=== PATIENT | male | born 1970 | race Caucasian/White ===

== ENCOUNTER 2024-12-29 10:19 | Outpatient (REF) | payer MEDICAID, SELFPAY ==
--- OUTSIDE RECORDS SUMMARY | 2024-08-06 07:00 | XMS_ITS ---
Author Organization [facility] Address [address] [place] [address] Care Team Providers Care Banking Pin Adjuster Name Role Phone NO, PCP Primary Care Provider Faby Zuniga Unavailable Social History Sex Assigned At : Social History Observation Description Sex Assigned At Male Encounters Encounter Location Date Provider Diagnosis [facility] [address] [place] [phone] 08/06/2024 Faby Zuniga Plan Of Treatment No Information Progress Notes * ALEJANDREZulema MORALESOB:[birth year] (54 yo M)Acc No.[id number]:08/06/2024 Case Management Patient: Henri JACOBSENsus Provider: Jim Zuniga :1970 A ge:53 Y S ex:Male Date:08/06/2024 Address:[address] [place], [place] [phone] Pcp:PCP NO Subjective: * Chief Complaints: * * Medical History: Objective: Assessment: Plan: * Treatment: * Images: Billing Information: * Visit Code: * Procedure Codes: Care Plan Details* * Electronic signature of Adelfo Zuniga on 12/29/2024 at 12:12 PM EDT Sign off status: Pending * Provider: Jim Zuniga Date: 0 08/06/2024 Generated for Claytoni ng/Faleobardog/eTransmitting on: 1 12:12 PM EDT
--- OUTSIDE RECORDS SUMMARY | 2024-09-04 09:30 | XMS_ITS ---
Author Organization [facility] Address [address] [place] [phone] Care Team Providers Care Guest Room Inspector Name Role Phone NO, PCP Primary Care Provider [phone] Faby Zuniga Unavailable [facility], Nursing Unavailable [phone] REASON FOR VISIT Phone: Intake Social History Sex Assigned At : Social History Observation Description Sex Assigned At Male Encounters Encounter Location Date Provider Diagnosis [id number] [place] [address] 09/04/2024 Nursing [facility] Assessments Encounter Date Diagnosis (ICD Code) Assessment Notes Treatment Notes Treatment Clinical Notes Section Notes 09/04/2024 Other 09/01: No [facility] records Plan Of Treatment Treatment Notes Assessment Notes Other 09/01: No [facility] record s Progress Notes * ALEJANDREMoy MORALESsDOB:[birth year] (54 yo M)Acc No.[id number]:09/04/2024 Progress Notes Patient: R MAIRA EARLADOHenriYossi Provider: Caesar lópez [facility] :1970 A ge:54 Y S ex:Male Date:09/04/2024 Address:[address] [facility], [place], [place] Pcp:PCP NO Subjective: * Chief Complaints: * 1 . Phone: Intake. * Medical History: Objective: * Vitals: Assessment: Plan: * Treatment: * Images: Billing Information: * Visit Code: * Procedure Codes: * Electronic signature of [facility] on 12/29/2024 at 12:11 PM EDT Sign off status: Pending * Provider: Caesar lópez [facility] Date: 0 09/04/2024 Generated for Chelsea gomez/Melba/Theo on: 1 12:11 PM EDT
--- OUTSIDE RECORDS SUMMARY | 2024-12-29 09:45 | XMS_ITS | Encounter Summary ---
Author Organization [employer] [facility] [employer] Address [address] [place] [address] [address] [place] [address] Care Team Providers Care Supervisor Roving Department Name Role Phone Hunter Kimbrough MD Primary Care Prov ider Reason for Referral * Consultation (Routine) - Authorized Specialty Diagnoses / Procedures Referred By Contac t Referred To Contact Behavioral Health Diagnoses Uncomplicated opioid dependence (CMS/HCC) (HCC) Anxiety Toi Shook MD [address] [place] [address] Phone: tel: fax: Referral ID Status Reason Start Date Expiration Date Visits Requested Visits Authorized [id number] Authorized Specialty Services Required 12/29/2025 1 1 Reason for Visit * Reason Comments OBAT F/U Encounter Details Date Type Department Care Team (Latest Contact Info) Description 12/29/2024 9:45 AM EDT Office Visit [facility] [address] [place], [place] [phone] Toi Sohok MD [address] [place], [place] [phone] Uncomplicated opioid dependence (CMS/HCC) (HCC) (Primary Dx); Opioid type dependence, continuous (CMS/HCC) (HCC); Tobacco use disorder; Anxiety Social History Tobacco Use Types Packs/Day Years Used Date Smoking Tobacco: Former Cigarettes 1 34.8 S tarted: 1990 Smokeless Tobacco: Never Alcohol Use Standard Drinks/Week Comments Not Currently 0 (1 standard drink = 0.6 oz pur e alcohol) Depression Answer Date Recorded Patient Health Questionnaire-9 Score 0 11/30/2024 Patient Health Questionnaire-9 Score 0 11/30/2024 Last PHQ-9: Questionnaire Data Not on file 0 11/30/2024 Housing Stability Answer Date Recorded What is your housing situation today? I have [place] wagner 11/30/[address] you li ve. Do you have problems with any of the following? None of the above 11/30/2024 Food Insecurity Answer Date Recorded Within the past 12 months, y ou worried that your food would run out before you got money to buy more: Never True 11/30/2024 Within the past 12 months,th e food you bought just didn't last and you didn't have enough money to get more: Never True Transportation Answer Date Recorded In the past 12 months, has l ack of transportation kept you from medical appts, meetings, work or from getting things needed for daily living? No 11/30/2024 Utilities Answer Date Recorded In the past 12 months, has t he electric, gas, oil or water company threatened to shut off services in your home? No 11/30/2024 Depression Answer Date Recorded Patient Health Questionnaire-2 Score 0 11/30/2024 Internet Access Answer Date Recorded Internet Access Q1 Yes 11/30/2024 Internet Access Q2 Not on file 11/30/2024 Sex and Gender Information Value Date Recorded Sex Assigned at Male 09/11/2024 10:55 AM EDT Legal Sex Male 10:54 AM EDT Gender Identity Male 09/11/2024 10:55 AM EDT Sexual Orientation Straight 09/11/2024 10 :55 AM EDT documented as of this encounter Plan of Treatment Upcoming Encounters Date Type Department Care Team (Late st Contact Info) Description 01/05/2025 10:30 AM EDT Clinical Support [facility] [address] [place], [place] [phone] Paris Crabtree, RICARDA 02/02/2025 2:30 PM EST Office Visit [facility] MED & PEDS [address] [place] [address] Hunter Kimbrough MD [address] [place], [place] [phone] Scheduled Referrals Name Type Priority Associated Diagnoses Order Schedule Referral to Behavioral Health Outpatient Referral Routine Uncomplicated opioid dependence (CMS/HCC) (HCC) Anxiety Expected: 12/29/2024 (Approximate), Expires: 06/28/2026 documented as of this encounter Procedures Procedure Name Priority Date/Time Associated Diagnosis Comments POCT AARON-14 URINE DRUG SCREEN Routine 12/29/2024 10:50 AM EDT Opioid type dependence, continuous (CMS/HCC) (HCC) documented in this encounter Results * (ABNORMAL) POCT AARON-14 Urine Drug Screen (12/29/2024 10:50 AM EDT) THC Negative Negative Cocaine Screen, Urine Negative Negative Opiate Screen, Urine Negative Negative Methamphetamine Screen Urine Negative Negative Amphetamine Screen, Urine Negative Negative Benzodiazepines Screen, Urine Negative Negative Barbiturate Screen, Urine Negative Negative Methadone Screen, Urine Negative Negative Buprenophine Screen, Urine Positive(A) Negative TCA, Urine Negative Negative MDMA Urine Negative Negative ng/mL Oxycodone Screen, Urine Negative Negative Phencyclidine (PCP), Urine Negative Negative Fentanyl, Urine Negative Negative Urine Urine specimen obtained by clean catch procedure / Unknown 12/29/2024 10:50 AM EDT Toi Shook MD POINT OF CARE TEST ENTER/EDIT ORDERABLES Final Result documented in this encounter Visit Diagnoses Diagnosis Uncomplicated opioid dependence (CMS/HCC) (HCC)- Primary Opioid type dependence, continuous (CMS/HCC) (HCC) Opioid type dependence, continuous Tobacco use disorder Anxiety Anxiety state, unspecified documented in this encounter Additional Health Concerns Assessment Noted Time PHQ-9 Depression Total Score: 0 12/01/19 25 9:06 AM EDT documented as of this encounter Care Teams Supervisor Roving Department Relationship Specialty Start Date End Date Hunter Kimbrough MD [address] [place] [phone] PCP - General Internal Medicine 10/13/24 documented as of this encounter
[2024-12-29 11:45] LABS: MANUAL DIFF FLAG NO
[2024-12-29 12:12] LABS: Hematocrit 46.0 % (42.0-52.0); Hemoglobin 14.7 g/dl (14.0-18.0); Imm Gran Abs Auto 0.04 X10*3/uL (0.00-0.03); Imm Gran Pct Auto 0.7 % (0.0-0.4); Lymphocytes Absolute Auto 1.6 X10*3/uL (1.2-4.9); Mean Corpuscular HGB Conc 32.0 g/dl (31.0-36.0); Mean Corpuscular Hemoglobin 29.3 pg (27.0-33.0); Mean Corpuscular Volume 91.8 fL (80.0-98.0); NRBC Abs Auto 0.000 X10*3/uL (0.0-0.012); NRBC Pct Auto 0.0 /100WBC (0.0-0.2); Platelet Count 344 X10*3/uL (160-400); Red Blood Count 5.01 X10*6/uL (4.60-5.80); White Blood Count 5.7 X10*3/uL (4.8-10.8)
--- OUTSIDE RECORDS SUMMARY | 2024-12-29 12:12 | XMS_ITS | Patient Health Record ---
Author Organization [facility] Address [address] [place] [address] Care Team Providers Care Soloist Dancer Name Role Phone NO, PCP Primary Care Provider Faby Zuniga Unavailable [facility], Nursing Unavailable [phone] Vicky Pool Unavailable [phone] Results Component Value Reference Range Notes Drug Toxicology Reviewed date:07/29/2024 12:07:25 PM Interpretation:Positive THC Performing Lab: Notes/Report: Positive THC Reason For Referral Reason Needs a [place] ID, he is looking for work Wrong number Referral Organization [facility] Referring Provider First Name Faby Referring Provider Last Name [facility] Referral Priority Routine Reason Needs a [place] ID, looki ng for work александр Person who answered said it was a wrong number Referral Organization [facility] Referring Provider First Name Faby Referring Provider Last Name [facility] Referral Priority Routine Social History Sex Assigned At : Social History Observation Description Sex Assigned At Male Encounters Encounter Location Date Provider Diagnosis [facility] [address] [place] [phone] 07/27/2024 Vicky Pool [facility] [address] [place] [phone] 07/28/2024 [facility] [address] [place] [phone] 07/29/2024 [facility] [address] [place] [phone] 08/06/2024 Faby Zuniga [facility] [address] [place] [phone] 08/13/2024 Faby Zuniga [facility] [address] [place] [address] [phone] 08/20/2024 Faby Zuniga [facility] [address] [place] [address] [phone] 08/25/2024 Faby Zuniga [facility] [address] [place] [address] [phone] 07/24/2024 Faby Zuniga [facility] [address] [place] [phone] 07/24/2024 Vicky Pool [facility] [address] [place] [address] 07/29/2024 Nursing [facility] Encounter for screening, unspecified Z13.9 Assessments Encounter Date Diagnosis (ICD Code) Assessment Notes Treatment Notes Treatment Clinical Notes Section Notes 07/29/2024 Encounter for screening, unspecified (ICD-10 - Z13.9) In house urine drug test performed, results entered into [facility] and printed for pt to provide to program. 09/04/2024 Other 09/01: No [facility] records Plan Of Treatment No Information Insurance Providers Payer Name Payer Address Payer Phone Subscriber Number Group Number Insured Name Patient Relationship to Insured Coverage Start Date Coverage End Date [place] [address] [place] [phone] [id number] Yossi Kebede Self - patient is the insured
--- OUTSIDE RECORDS SUMMARY | 2024-12-29 12:12 | XMS_ITS | Clinical Summary ---
Author Organization [employer] Address [address] [place] [address] 7[address] [place] [address] Care Team Providers Care Editor Trade Journal Name Role Phone Hunter Kimbrough MD Primary Care Prov ider Allergies No known active allergies Medications * This document contains information received from the source organization and may not represent a complete record from that organization. ciclopirox (Penlac) 8 % solutionIndica tions:Onychomy cosis Apply topically at bedtime. 6 mL 10/24/19 25 Active gabapentin (Neurontin) 300 MG capsuleIndicat ions:Neuropath y of left foot Take 1 capsule (300 mg) by mouth 3 times daily. 90 capsule 2 11/24/19 25 026 Active apixaban (Eliquis) 5 MG tablet TAKE 1 TABLET BY MOUTH TWICE A DAY 60 tablet 3 12/15/19 25 Active Buprenorphine HCl-Naloxone HCl (Suboxone) 8-2 MG SL filmIndication s:Uncomplicate d opioid dependence (CMS/HCC) (HCC) Place 1 Film under the tongue Once per day for 7 days. 7 Film 12/23/19 25 Active buprenorphine- naloxone (Suboxone) 4-1 MG per sublingual filmIndication s:Uncomplicate d opioid dependence (CMS/HCC) (HCC) Place 1 Film under the tongue Once per day for 7 days. 7 Film 12/23/19 25 Active nicotine (Nicoderm CQ) 14 MG/24HR patch Place 1 patch on the skin 1 (one) time each day at the same time. 42 patch 12/30/19 25 025 Active nicotine polacrilex (Nicotine Mini) 2 MG lozenge 1 or 2 lozenges every 1-2 hours instead of a cigarette. 108 lozenge 1 12/30/19 Active apixaban (Eliquis) 5 MG tablet Take 1 tablet (5 mg) by mouth 2 times daily. 180 tablet 1 10/14/19 25 025 Discontinued acetaminophen (Tylenol 8 Hour) 650 MG ER tabletIndicati ons:Polyarthra lgia Take 1 tablet (650 mg) by mouth every 8 (eight) hours if needed for mild pain. Do not crush, chew, or split. 30 tablet 2 11/24/19 25 025 Buprenorphine HCl-Naloxone HCl (Suboxone) 8-2 MG SL filmIndication s:Uncomplicate d opioid dependence (CMS/HCC) ([facility]) Place 1 Film under the tongue Once per day for 7 days. 7 Film 12/02/19 25 025 Discontinued(Re order (will not trigger notification to Pharmacy)) buprenorphine- naloxone (Suboxone) 4-1 MG per sublingual filmIndication s:Uncomplicate d opioid dependence (CMS/HCC) ([facility]) Place 1 Film under the tongue Once per day for 7 days. 7 Film 12/02/19 25 025 Discontinued(Re order (will not trigger notification to Pharmacy)) buprenorphine ER (Sublocade) 300 mg/1.5mL injectionIndic ations:Uncompl icated opioid use Inject 1.5 mL (1 each) under the skin every month to absorb continually. 1.5 mL 1 12/02/19 25 025 Discontinued(Du plicate order (will not trigger notification to Pharmacy)) Eliquis 5 MG tablet TAKE 1 TABLET BY MOUTH TWICE A DAY 60 tablet 3 12/12/19 25 025 Discontinued(Re order (will not trigger notification to Pharmacy)) Buprenorphine HCl-Naloxone HCl (Suboxone) 8-2 MG SL filmIndication s:Uncomplicate d opioid dependence (CMS/HCC) (HCC) Place 1 Film under the tongue Once per day for 2 days. 2 Film 12/15/19 25 025 Discontinued(Du plicate order (will not trigger notification to Pharmacy)) buprenorphine- naloxone (Suboxone) 4-1 MG per sublingual filmIndication s:Uncomplicate d opioid dependence (CMS/HCC) (HCC) Place 1 Film under the tongue Once per day for 2 days. 2 Film 12/15/19 25 025 Discontinued(Re order (will not trigger notification to Pharmacy)) Buprenorphine HCl-Naloxone HCl (Suboxone) 8-2 MG SL filmIndication s:Uncomplicate d opioid dependence (CMS/HCC) (HCC) Place 1 Film under the tongue Once per day for 7 days. 7 Film 12/16/19 25 025 Discontinued(Re order (will not trigger notification to Pharmacy)) buprenorphine- naloxone (Suboxone) 4-1 MG per sublingual filmIndication s:Uncomplicate d opioid dependence (CMS/HCC) (HCC) Place 1 Film under the tongue Once per day for 7 days. 7 Film 12/16/19 25 025 Discontinued(Re order (will not trigger notification to Pharmacy)) Buprenorphine HCl-Naloxone HCl (Suboxone) 8-2 MG SL filmIndication s:Uncomplicate d opioid dependence (CMS/HCC) (HCC) Place 1 Film under the tongue Once per day for 7 days. 7 Film 12/17/19 25 025 Discontinued(Re order (will not trigger notification to Pharmacy)) buprenorphine- naloxone (Suboxone) 4-1 MG per sublingual filmIndication s:Uncomplicate d opioid dependence (CMS/HCC) (HCC) Place 1 Film under the tongue Once per day for 7 days. 7 Film 12/17/19 25 025 Discontinued(Re order (will not trigger notification to Pharmacy)) Active Problems Problem Noted Date Diagnosed Date Right hand pain 12/15/2024 Assessment & Plan (12/15/2024 10:54 AM EDT): He has appointment today with hand surgery for this. Given number, address, and time. He agrees with the plan. Polyarthralgia 11/23/2024 Assessment & Plan (11/23/2024 2:15 PM EDT): I will order some blood work and contact patient with results Acquired trigger finger 11/23/2024 Assessment & Plan (11/30/2024 9:39 AM EDT): Continue with tylenol as needed, referral for hand surgeon sent, pending appointment, avoid repetitive movements Assessment & Plan (11/23/2024 2:15 PM EDT): I will refer patient to hand surgery for right trigger finger He may take acetaminophen for pain Neuropathy of left foot 10/23/2024 Assessment & Plan (11/23/2024 2:15 PM EDT): I went up on his gabapentin to 300 mg every 8 hours then follow-up with PCP Vascular insufficiency 10/23/2024 Assessment & Plan (12/15/2024 10:54 AM EDT): Chronic, no evidence of cellulitis or increased swelling compared to the right leg. Continue Eliquis for DVT. He missed his vascular appointment. I have him the number to call and reschedule. Tinea pedis of both feet 10/23/2024 Onychomycosis 10/23/2024 Elevated blood pressure reading 10/23/2024 Assessment & Plan (10/23/2024 11:13 AM EDT): I advise low Na diet and f/u with PCP Encounter for medical examination to establish c are 10/13/2024 Assessment & Plan (10/13/2024 9:33 AM EDT): Er visit past year:- Hospitalization: DVT left leg/PE 2001, Pmhx: DVT, poor vascular circulation Pshx: kidney stones 2022, left leg All: - Meds: suboxone ( 2 months from raj) Colonoscopy: due Screening for colon cancer 10/13/2024 Screening for lung cancer 10/13/2024 Left leg swelling 10/13/2024 Assessment & Plan (11/30/2024 9:40 AM EDT): On eliquis due to dvt, follow up with vascular surgery as scheduled, er precaution discussed Encounters * This document contains information received from the source organization and may not represent a complete record from that organization. Date Type Department Care Team Description 12/29/2024 9:45 AM EDT Office Visit [facility] [address] [place] [phone] Toi Shook MD Uncomplicated opioid dependence (CMS/HCC) ([facility]) (Primary Dx); Opioid type dependence, continuous (CMS/HCC) (HCC); Tobacco use disorder; Anxiety 12/29/2024 Travel 12/22/2024 10:00 AM EDT Clinical Support [facility] [address] [place] [phone] Paris Crabtree RN Opioid type dependence, continuous (CMS/HCC) (HCC) (Primary Dx) 12/22/2024 Patient Outreach [facility] [address] [place] [phone] Marin Rodriguez Recovery Supports 12/22/2024 Refill [facility] [address] [place] [phone] Paris Crabtree RN Uncomplicated opioid dependence (CMS/HCC) (HCC) 12/22/2024 Travel 12/16/2024 Refill [facility] [address] [place] [address] [phone] Paris Crabtree RN Uncomplicated opioid dependence ([facility]/HCC) (HCC) 12/15/2024 10:00 AM EDT Office Visit [facility] [address] [place] [phone] Diana Whitlock MD Vascular insufficiency (Primary Dx); Right hand pain; Substance use disorder 12/15/2024 9:30 AM EDT Office Visit [facility] [address] [place] [address] [phone] Toi Shook MD Uncomplicated opioid dependence ([facility]/HCC) (Primary Dx); Tobacco use disorder 12/15/2024 Patient Outreach [facility] [address] [place] [address] [phone] Marin Rodriguez Recovery Supports 12/15/2024 Patient Outreach [facility] [address] [place] [phone] Melchor Burr Recovery Supports 12/15/2024 Travel 12/14/2024 Refill [facility] [address] [place] [address] [phone] Paris Crabtree RN Uncomplicated opioid dependence ([facility]/HCC) 12/11/2024 Refill [facility] [address] [place] [facility] [place] [address] Hunter Kimbrough MD 12/09/2024 Refill [facility] [address] [place] [address] Hunter Kimbrough MD 12/08/2024 Refill [facility] [address] [place] [phone] Paris Crabtree RN 12/01/2024 11:15 AM EDT Office Visit [facility] [address] [place] [phone] Toi Shook MD Opioid type dependence, continuous (CMS/HCC) (Primary Dx); Uncomplicated opioid dependence (CMS/HCC); Tobacco use disorder; Other depression 12/01/2024 9:30 AM EDT Office Visit [facility] [address] [place] [phone] Chante Restrepo RN Uncomplicated opioid dependence (CMS/HCC) 12/01/2024 Patient Outreach [facility] [address] [place] [phone] Marin Rodriguez RC Recovery Supports 12/01/2024 Refill [facility] [address] [place] [phone] Paris Crabtree RN Uncomplicated opioid use (Primary Dx) 12/01/2024 Travel 11/30/2024 9:00 AM EDT Telemedicine [facility] [address] [place] [address] Hunter Kimbrough MD Acquired trigger finger (Primary Dx); Polyarthralgia; Left leg swelling 11/30/2024 Travel 11/27/2024 Telephone [facility] [address] [place] [address] Hunter Kimbrough MD 11/27/2024 Telephone [facility] [address] [place] [address] Hunter Kimbrough MD Chart Prep 11/23/2024 1:20 PM EDT Office Visit [facility] [address] [place] [phone] Myrna Hall MD Polyarthralgia; Acquired trigger finger; Neuropathy of left foot 11/23/2024 Travel 11/18/2024 Population Health Risk Score [facility] () [address] [phone] Provider, Population Health Generic 11/13/2024 Refill [facility] [address] [place] [address] Myrna Hall MD Neuropathy of left foot 10/23/2024 10:40 AM EDT Office Visit [facility] [address] [place] [address] Myrna Hall MD Onychomycosis (Primary Dx); Neuropathy of left foot; Vascular insufficiency; Tinea pedis of both feet; Elevated blood pressure reading 10/23/2024 Travel 10/15/2024 Telephone [facility] [address] [place] [address] Hunter Kimbrough MD 10/15/2024 Orders Only [facility] [address] [place] [address] Hunter Kimbrough MD 10/13/2024 9:00 AM EDT Telemedicine [facility] [address] [place] [address] Hunter Kimbrough MD Encounter for medical examination to establish care (Primary Dx); Screening for colon cancer; Screening for lung cancer; Left leg swelling 10/13/2024 Telephone [facility] [address] [place] [address] Hunter Kimbrough MD 10/13/2024 Telephone [facility] [address] [place] [address] Hunter Kimbrough MD Results 10/13/2024 Orders Only [facility] [address] [place] [address] Hunter Kimbrough MD 10/13/2024 Telephone [facility] [address] [place] [address] Hunter Kimbrough MD 10/13/2024 Travel from Last 3 Months Family History Medical History Relation Name Comments Cirrhosis Father Bone cancer Maternal Grandmother Diabetes Mother Relation Name Status Comments Father Maternal Grandmother Mother Social History Tobacco Use Types Packs/Day Years Used Date Smoking Tobacco: Former Cigarettes 1 34.8 S tarted: 1990 Smokeless Tobacco: Never Tobacco Cessation:Counseling Given: Not Answered Alcohol Use Standard Drinks/Week Comments Not Currently [...] Orientation Straight 09/11/2024 10 :55 AM EDT Last Filed Vital Signs Vital Sign Reading Time Taken Comments Blood Pressure 116/69 12/15/2024 10:03 AM EDT Pulse 69 12/15/2024 10:03 AM EDT Temperature 36.5 C (97.7 F) 12/15/2024 10:03 AM EDT Respiratory Rate 18 12/15/2024 10:03 AM EDT Oxygen Saturation 96% 12/15/2024 10:03 AM EDT Inhaled Oxygen Concentration - - Weight 98 kg (216 lb) 12/15/2024 10:03 AM EDT Height 180.3 cm (5' 11 ) 10/23/2024 10:23 AM EDT Body Mass Index 30.13 10/23/2024 10:23 AM EDT Plan of Treatment Upcoming Encounters Date Type Department Care Team (Late st Contact Info) Description 01/05/2025 10:30 AM EDT Clinical Support [facility] [address] [place] [address] Paris Crabtree RN 02/02/2025 2:30 PM EST Office Visit [facility] [address] [place] [address] Hunter Kimbrough MD [address] [place] [address] Health Maintenance Due Date Last Done Comments CT Colonography 1970 Colonoscopy 1970 Colorectal Cancer Screening 1970 FIT DNA/Cologuard 1970 FIT 1970 FOBT 1970 HIV Screening 1970 Lipid Panel 1970 Sigmoidoscopy 1970 Hepatitis C Screening 1988 DTaP/Tdap/Td Vaccines (1 - Tdap) 1989 Hepatitis B Vaccines (1 of 3 - 19+ 3-dose series) 1989 Pneumococcal Vaccine: 50+ Years (1 of 1 - PCV) 2020 Zoster Vaccines (1 of 2) 2020 COVID-19 Vaccine (1 - 2023-2 5 season) 2024 Influenza Vaccine (#1) 2024 Alcohol/Substance Use Screening 11/30/2025 11/30/2024 Depression Screening 11/30/2025 11/30/2024, 11/30/2024 Disability Screening 11/30/2025 11/30/2024 SDOH Screening 11/30/2025 11/30/2024 Tobacco Screening 12/15/2025 12/15/2024 RSV Patients and Patients Aged 60 years or older (1 - 1-dose 75+ series) 2045 HIB Vaccines Aged Out No longer eligi ble based on patient's age to complete this topic HPV Vaccines Aged Out No longer eligi ble based on patient's age to complete this topic Hepatitis A Vaccines Aged Out No long er eligible based on patient's age to complete this topic IPV Vaccines Aged Out No longer eligi ble based on patient's age to complete this topic Meningococcal B Vaccine Aged Out No l onger eligible based on patient's age to complete this topic Meningococcal Vaccine Aged Out No cora bernadine eligible based on patient's age to complete this topic RSV under 20 months Aged Out No longe r eligible based on patient's age to complete this topic Rotavirus Vaccines Aged Out No longer eligible based on patient's age to complete this topic Procedures Procedure Name Priority Date/Time Associated Diagnosis Comments POCT AARON-14 URINE DRUG SCREEN Routine 12/29/2024 10:50 AM EDT Opioid type dependence, continuous (CMS/HCC) (HCC) HEMOGLOBIN A1C Routine 12/29/2024 10:28 AM EDT Neuropathy of left foot POCT AARON-14 URINE DRUG SCREEN Routine 12/22/2024 9:51 AM EDT Opioid type dependence, continuous (CMS/HCC) (HCC) POCT AARON-14 URINE DRUG SCREEN Routine 12/15/2024 9:30 AM EDT Uncomplicated opioid dependence (CMS/HCC) POCT AARON-14 URINE DRUG SCREEN Routine 12/01/2024 10:28 AM EDT Opioid type dependence, continuous (CMS/HCC) LOWER EXTREMITY VENOUS DUPLEX LEFT STAT 10/13/2024 Left leg swelling from Last 3 Months Results * (ABNORMAL) POCT AARON-14 Urine Drug Screen (12/29/2024 10:50 AM EDT) Only the most recent of4 resultswithin the time period is included. THC Negative Negative Cocaine Screen, Urine Negative [...] procedure / Unknown 12/29/2024 10:50 AM EDT us Toi Shook MD POINT OF CARE TEST ENTER/EDIT ORDERABLES Final Result * Hemoglobin A1c (12/29/2024 10:28 AM EDT) Hemoglobin A1c 5.3 <6.0 % [facility] Comment:Hemoglobin A1C Refer ence Range Adults: 4.8 - 6.0 % Non diabetic: < 6.0 % Goal: < 7.0 %Additional Action Suggested: > 8.0 %Note: Hemoglobin A1c results are invalid for patients with abnormal amounts of HbF. Blood transfusions may impact the HbA1c concentration in the patient sample. Estimated Average Glucose 105 mg/dL [facility] Comment:eAG = Estimated ave rage glucose which is %A1C expressed asaverage glucose, using the formula of the R5V-BmennhyOninqkx Glucose study (ADAG), Diabetes Care, Vol.31,#8,Oct. 2007 Blood Venous blood specimen / Unknown 12/29/2024 10:28 AM EDT 12/29/2024 11:43 AM EDT us Myrna Herrera MD LAB BLOOD ORDERABLES Final Result [facility] [address] [place] [phone] * VASC US Lower Extremity Venous Duplex Left (10/13/2024) us Hunter Chandler MD CV VASCULAR PROCED URES Final Result [facility] [address] [place] [address] from Last 3 Months Insurance [facility] C3 Care Teams Editor Trade Journal Relationship Specialty Start Date End Date Hunter Kimbrough MD [address] [place] [phone] PCP - General Internal Medicine 10/13/24
--- OUTSIDE RECORDS SUMMARY | 2024-12-29 12:12 | XMS_ITS | Encounter Summary ---
Author Organization [employer] Address [address] [place] [address] 7 [place] [address] Care Team Providers Care Metal Off Bearer Name Role Phone Hunter Kimbrough MD Primary Care Prov ider Encounter Details Date Type Department Care Team ([facility] Contact Info) Description 10/15/2024 Orders Only [facility] [address] [place], [place] [phone] Hunter Kimbrough MD [address] [place], [place] [phone] Social History Tobacco Use Types Packs/Day Years Used Date Smoking Tobacco: Former Cigarettes 1 34.8 S tarted: 1990 Smokeless Tobacco: Never Alcohol Use Standard Drinks/Week Comments Not Currently 0 (1 standard drink = 0.6 oz pur e alcohol) Sex and Gender Information Value Date Recorded Sex Assigned at Male 09/11/2024 10:55 AM EDT Legal Sex Male 10:54 AM EDT Gender Identity Male 09/11/2024 10:55 AM EDT Sexual Orientation Straight 09/11/2024 10 :55 AM EDT documented as of this encounter Plan of Treatment Upcoming Encounters Date Type Department Care Team ([facility] Contact Info) Description 01/05/2025 10:30 AM EDT Clinical Support [facility] [address] [place], [place] [phone] Paris Crabtree RN 02/02/2025 2:30 PM EST Office Visit [facility] [address] [place], [place] [phone] Hunter Kimbrough MD [address] [place], [place] [phone] documented as of this encounter Visit Diagnoses Not on filedocumented in this encounter Care Teams Metal Off Bearer Relationship Specialty Start Date End Date Hunter Kimbrough MD [address] [place] [phone] PCP - General Internal Medicine 10/13/24 documented as of this encounter
--- OUTSIDE RECORDS SUMMARY | 2024-12-29 12:12 | XMS_ITS | Encounter Summary ---
Author Organization [employer] Address [address] [facility] [address] [place] [address] Care Team Providers Care Carpenter Repairer Name Role Phone Hunter Kimbrough MD Primary Care Prov ider Encounter Details Date Type Department Care Team (Latest Contact Info) Description 12/29/2024 Travel Social History Tobacco Use Types Packs/Day Years [...] is your housing situation today? I have angelestoshia wagner 11/30/[address] you [...] Description 01/05/2025 10:30 AM EDT Clinical Support [facility] [address] [place], [place] [phone] Paris Crabtree RN 02/02/2025 2:30 PM EST Office Visit [facility] [address] [place] [address] Hunter Kimbrough MD [address] [place] [address] documented as of this encounter Visit Diagnoses Not on filedocumented in this encounter Additional Health Concerns Assessment Noted Time PHQ-9 Depression Total Score: 0 12/01/19 25 9:06 AM EDT documented as of this encounter Care Teams Carpenter Repairer Relationship Specialty Start Date End Date Hunter Kimbrough MD [address] [place] [address] PCP - General Internal Medicine 10/13/24 documented as of this encounter
[2024-12-29 12:40] LABS: Alanine Aminotransferase 23 U/L (0-40); Albumin Level 4.4 g/dL (3.5-5.0); Alkaline Phosphatase 85 U/L (39-117); Anion Gap 10 (12-20); Aspartate Amino Transferase 27 U/L (5-37); Blood Urea Nitrogen 10 mg/dL (9-16); Calcium 9.5 mg/dL (8.4-10.2); Carbon Dioxide 29 mmol/L (22-29); Chloride 109 mmol/L (96-108); Cholesterol 154 mg/dL (<200); Estimated Glomerular Filt Rate > 60; HDL Cholesterol 36 mg/dL (>40); Potassium 4.3 mmol/L (3.3-5.1); Sodium 144 mmol/L (135-145); Total Protein 7.4 g/dL (6.5-8.0); Triglycerides 113 mg/dL (<150)
[2024-12-29 12:52] LABS: Folate 12.4 ng/mL (> or = 4.0); Vitamin B12 440 pg/mL (200-900)
[2024-12-30 03:47] LABS: HBS Num1 60.54 mIU/mL (0-7.99); HBc Num1 11.02 S/CO (0.00-0.79); HBsAGNum1 0.45 S/CO (0.00-0.99); Hepatitis B Surface Antigen Negative (Negative); ~Hepatitis B Surface Antibody REACTIVE (Nonreactive)
[2024-12-30 03:50] LABS: HIV Num 1 10.49 S/CO (0.00-0.99); ~HepC Num1 14.62 S/CO (0.00-0.79); ~Hepatitis C Antibody Reactive (Nonreactive)
[2024-12-30 05:22] LABS: HBc Num2 10.92 S/CO; HBc Num3 10.89 S/CO
[2024-12-30 05:47] LABS: HIV Num 2 0.06 S/CO
[2024-12-30 05:48] LABS: HIV Num 3 0.07 S/CO
[2024-12-31 21:33] LABS: TS Negative Control Passed; TS Panel A 0; TS Panel B 0; TS Positive Control Passed; TSpotTB Negative (Negative)
[2025-01-01 03:17] LABS: HCV Log PCR <1.18 NOT DETECTED Log IU/mL (NOT DETECTED); HepC Viral Load <15 NOT DETECTED IU/mL (NOT DETECTED)
[2025-01-01 03:47] LABS: ~Hepatitis A Antibody IgG 9.49 S/CO (0.00-0.99)
[2025-01-01 12:33] LABS: Anti Nuclear Antibody Screen NEGATIVE (NEGATIVE)
== END 2024-12-29 10:20 | disposition home or self-care (01) ==
LOC: HO.HHCL 10:19
PROVIDERS: PCP Internal Medicine; Visit Provider Emergency Medicine
DX: Z11.59 Encounter for screening for other viral diseases (principal); Z01.84 Encounter for antibody response examination; Z11.4 Encounter for screening for human immunodeficiency virus [HIV]; Z11.3 Encounter for screening for infections with a predominantly sexual mode of transmission; F11.20 Opioid dependence, uncomplicated; G57.92 Unspecified mononeuropathy of left lower limb; M25.50 Pain in unspecified joint
CPT/HCPCS: 36415; 80053; 80061; 82306; 82607; 82746; 83036; 84443; 85025; 85652; 86038; 86140; 86200; 86481; 86592; 86704; 86706; 86708; 86803; 87340; 87389; 87522

== ENCOUNTER 2025-01-22 09:58 | Outpatient (AMB) | payer MEDICAID, SELFPAY ==
--- OUTSIDE RECORDS SUMMARY | 2024-09-04 08:30 | XMS_ITS ---
Author Organization [facility] Address [address] [place] [phone] Care Team Providers Care Green Feed Attendant Name Role Phone NO, PCP Primary Care Provider [phone] Faby Zuniga Unavailable [phone] [facility], Nursing Unavailable [phone] REASON FOR VISIT Phone: Intake Social History Sex Assigned At : Social History Observation Description Sex Assigned At Male Encounters Encounter Location Date Provider Diagnosis [address] [place] [address] 09/04/2024 Nursing [facility] Assessments Encounter Date Diagnosis (ICD Code) Assessment Notes Treatment Notes Treatment Clinical Notes Section Notes 09/04/2024 Other 09/01: No [facility] records Plan Of Treatment Treatment Notes Assessment Notes Other 09/01: No [facility] record s Progress Notes * ALEJANDREMoy MORALESsDOB:[birth year] (54 yo M)Acc No.[id number]:09/04/2024 Progress Notes Patient: R MAIRA EALRADOHenriYossi Provider: Caesar lópez [facility] :1970 A ge:54 Y S ex:Male Date:09/04/2024 Address:[address] [facility], [place], [place] Pcp:PCP NO Subjective: * Chief Complaints: * 1 . Phone: Intake. * Medical History: Objective: * Vitals: Assessment: Plan: * Treatment: * Images: Billing Information: * Visit Code: * Procedure Codes: * Electronic signature of [facility] on 01/22/2025 at 11:41 AM EST Sign off status: Pending * Provider: Caesar lópez [facility] Date: 0 09/04/2024 Generated for Chelsea gomez/Melba/Theo on: 1 03/24/2024 11:41 AM EST
--- OUTSIDE RECORDS SUMMARY | 2025-01-19 09:30 | XMS_ITS | Encounter Summary ---
Author Organization [employer] Address [address] [facility] 7t [place] [address] Care Team Providers Care Nailhead Puncher Name Role Phone Hunter Kimbrough MD Primary Care Prov ider Reason for Visit * Reason Comments obat f/u Encounter Details Date Type Department Care Team (Latest Contact Info) Description 01/19/2025 9:30 AM EST Clinical Support [facility] MEDICINE [address] [place] [address] Paris Crabtree RN Uncomplicated opioid dependence (CMS/HCC) ([facility]) Social History Tobacco Use Types Packs/Day Years [...] AM EDT documented as of this encounter Progress Notes * Paris Crabtree RN - 01/19/2025 9:30 AM EST Patient here today for Opioid Dependence RV. Patient on current Suboxone dose of 8/2 mg On a one week schedule. Patient has been in the program for 7 weeks Induction date: 12/01/24 LFTs done: 12/29/24 Hep A status: Reactive 12/29/24 Hep B status: Reactive 12/19/24 Hep C status: 12/19/24: Reactive RNA <15 MA PAT reviewed by provider. Last PCP appt: 11/30/24 televisit Smoking status: 1ppd LAST VISIT 01/12/25 Utox BUP Doing well. No alcohol or substance use. No ADRs. He is surprised that he has afford all co-pay for his vitamin D. He will review literature for Sublocade and let us know next week if he is interested in same. He has an appointment scheduled with the team therapist, so early T., at the end of January. He also has a follow-up visit with his PCP in January. Smokes about 1 pack cigarettes per day. States when he uses the nicotine patch and lozenges, they are effective. However, he is not quite ready to stop. He will work on this more when he finishes current pack of cigarettes. --------- As above. Doing well. No ADRs. Reviewed recent labs. Informed the upcoming visits with and PCP. We will ask the pharmacy if it would be cheaper for me to prescribe a 3-month quantity of vitamin D. Still considering Sublocade. Follow-up 1 week. Tobacco use disorder As above. Contemplation. I inadvertently sent prescription for 14 mg patches last visit. Discussed. Prescribed 21 mg nicotine patches, #42. Not to take both 14 and 21 mg patches, just 21 mg patches. He will keep the 14 mg patches to be used when dose is decreased. Continue to review. Diagnoses and all orders for this visit: Uncomplicated opioid dependence (CMS/HCC) (HCC) Tobacco use disorder - nicotine (Nicoderm CQ) 21 MG/24HR patch; Place 1 patch on the skin 1 (one) time each day at the same time for 42 doses. TODAY 01/19/25 UTOX not requested Yossi presented today for OBAT RN IN PERSON VISIT for Opioid Use Disorder. He is alert and oriented. Speech clear, coherent and goal directed. Easily engaged and initiates conversation. Doing well onsuboxone. Denies illicit substance use, cravings or side effects. Still considering sublocade, but wants to talk with his PCP first. Plan: Suboxone dosing schedule of 8/2 mg daily and management of side effects reviewed. Recovery support,harm reduction (including Narcan), and behavioral health attendance reviewed. Appointment for 1 week given. Patient expressed understanding and agreement with continuing plan of care. This information has been disclosed to you from records protected by federal confidentiality rules (42 CFR Part 2). The federal rules prohibit you from making any further disclosure of information inthis record that identifies a patient as having or having had a substance use disorder either directly, by reference to publicly available information, or through verification of such identification by another person unless further disclosure is expressly permitted by the written consent of the individual whose information is being disclosed or as otherwise permitted by (see2.3.1). The federal rules restrict any use of the information to investigate or prosecute with regard to a crime any patient with a substance use disorder, except as provided at 2.12??(5) and 2.65. documented in this encounter Plan of Treatment Upcoming Encounters Date Type Department Care Team (Late st Contact Info) Description 01/26/2025 9:45 AM EST Office Visit [facility] MEDICINE [address] [place] [id number] Toi Shook MD [address] [place] [address] 02/02/2025 10:30 AM EST Clinical Support [address] [address] Paris Crabtree, RICARDA 02/02/2025 2:30 PM EST Office Visit [facility]C MED & PEDS [address] [place] [address] Hunter Kimbrough MD [address] [place] [address] documented as of this encounter Visit Diagnoses Diagnosis Uncomplicated opioid dependence (CMS/HCC) (HCC) documented in this encounter Additional Health Concerns Assessment Noted Time PHQ-9 Depression Total Score: 0 12/01/19 9:06 AM EDT documented as of this encounter Care Teams Nailhead Puncher Relationship Specialty Start Date End Date Hunter Kimbrough MD [address] [place] [address] PCP - General Internal Medicine 10/13/24 documented as of this encounter
--- NOTE | 2025-01-22 07:47 | MHC.OFFVIS ---
Intake Visit Reasons: LDCT HPI HPI LDCT: Details: Initial visit for this 54yo smoker with a 50PYH. Patient started smoking at age 13 for 41 years at 1-2ppd. . Denies marijuana use. Denies second hand smoke exposure. Denies exposure to chemicals or substances like asbestos. . Denies known family history of lung cancer. Denies personal history of cancers. Denies chest CT in last year. . Denies recent travel outside the [place]. Denies recent respiratory illness or recent hospitalization for respiratory issues. Denies testing positive for COVID. Admits receiving COVID Vaccine. . Denies fever, chills, new/worsening cough, hemoptysis, hoarseness or dysphagia. Denies significant chest pain, significant dyspnea or unintentional weight loss. Patient Lung Cancer Screening Questionnaire reviewed with patient by provider. . Shared Decision Making Completed. Patient meets criteria. Discussed in detail with patient, the risk vs benefit of LDCT screening. Patient consents to proceed with scan. Discussed smoking cessation. [facility] Medical History (Updated 01/22/25 @ 10:16 by Gracie Rebolledo PA-C) Nicotine dependence, cigarettes, uncomplicated Social History (Updated 01/22/25 @ 10:16 by Gracie Rebolledo PA-C) Patient Tobacco Use Status: Current everyday Tobacco user Years Smoked: (onset 13yo, 1-2ppd x 41yrs, 50pyh) Assessment & Plan Assessment & Plan (1) Nicotine dependence, cigarettes, uncomplicated: Comment: (onset 13yo, 1-2ppd x 41yrs, 50pyh) Code(s): F17.210 - Nicotine dependence, cigarettes, uncomplicated Category: Medical Plan: - SDM visit completed today in office. - Patient meets criteria for LDCT for lung cancer screening purposes and is asymptomatic. - Smoking cessation counseling offered. Patients can always call [phone]. - Will arrange for a LDCT scan of the chest for screening purposes at [facility]. - Risks, benefits, and alternatives were discussed in detail and the patient agrees to proceed. - Risks discussed include but are not limited to: radiation exposure, anxiety during testing and while awaiting results, false negatives, false positives and possibility of additional intervention such as further imaging or surgical procedures for benign disease. - Benefits are obviously detection of lung cancer at an early stage which can lead to improved outcomes. - Discussed the importance of screening program compliance with adherence to yearly LDCT scan as scheduled - or sooner interval scans for personalized screening regimen. - Discussed follow up plan. Our office will send a letter discussing results and if needed set up phone call and office visit based on CT findings. - Patient educated on results categorization and the management decisions for suspicious findings potentially found on the screening LDCT scan. Any patient with a Lung RADS score of 3 or 4 will be reviewed by a multidisciplinary team at [facility] to form a plan of action in regards to scan findings. - If further work up is warranted for a suspicious lung finding this will be followed by the Lung Cancer Screening program in conjunction with the Thoracic Surgery Department at [facility]. - A copy of the office note and LDCT will be sent to the patient's PCP - as well as documentation on any associated further plans of care. - Incidental findings on LDCT are the PCP's responsibility. These findings are indicated with an S finding on the LDCT Assessment. A note discussing the findings will be sent to the PCP who is then responsible for further management. - All questions answered.? Coding Level of Care Code Lung Cancer Screening G0296 Diagnoses Nicotine dependence, cigarettes, uncomplicated F17.210
--- OUTSIDE RECORDS SUMMARY | 2025-01-22 11:41 | XMS_ITS | Encounter Summary ---
Author Organization [employer] Address [address] [place] [address] 7 [place] [address] Care Team Providers Care Cnc Cutting Operator Name Role Phone Hunter Kimbrough MD Primary Care Prov ider Encounter Details Date Type Department Care Team (Late Contact Info) Description 10/15/2024 Orders Only [facility] CHC MED & PEDS [address] [place], [place] [phone] Hunter Kimbrough MD [address] [place] [address] Social History Tobacco Use Types Packs/Day Years [...] Encounters Date Type Department Care Team (Late Contact Info) Description 01/26/2025 9:45 AM EST Office Visit [address] [address] Toi Shook MD [address] [place] [id number] 02/02/2025 10:30 AM EST Clinical Support [address] [address] Paris Crabtree, RICARDA 02/02/2025 2:30 PM EST Office Visit [facility] CHC MED & PEDS [address] [place], [place] [phone] Hunter Kimbrough MD [address] [place], [place] [phone] documented as of this encounter Visit Diagnoses Not on filedocumented in this encounter Care Teams Cnc Cutting Operator Relationship Specialty Start Date End Date Hunter Kimbrough MD [address] [place] [address] PCP - General Internal Medicine 10/13/24 documented as of this encounter
--- OUTSIDE RECORDS SUMMARY | 2025-01-22 11:41 | XMS_ITS | Encounter Summary ---
Author Organization [employer] Address [address] [facility] 7t [place] [address] Care Team Providers Care Jacket Preparer Name Role Phone Hunter Kimbrough MD Primary Care Prov ider Reason for Visit * Reason Onset Date Comments Med Refill 01/18/2025 Encounter Details Date Type Department Care Team (Late st Contact Info) Description 01/18/2025 Refill [facility] MEDICINE [address] [place] [address] Paris Crabtree RN Uncomplicated opioid dependence (CMS/HCC) [...] Description 01/26/2025 9:45 AM EST Office Visit [facility] MEDICINE [address] [place] [phone] Toi Shook MD [address] [place] [address] 02/02/2025 10:30 AM EST Clinical Support [address] [address] Paris Crabtree RN 02/02/2025 2:30 PM EST Office Visit [facility] CH[facility] MED & PEDS [address] [place] [address] Hunter Kimbrough MD [address] [place] [address] documented as of this encounter Visit Diagnoses Diagnosis Uncomplicated opioid dependence (CMS/HCC) (HCC) documented in this encounter Additional Health Concerns Assessment Noted Time PHQ-9 Depression Total Score: 0 12/01/19 9:06 AM EDT documented as of this encounter Care Teams Jacket Preparer Relationship Specialty Start Date End Date Hunter Kimbrough MD [address] [place] [address] PCP - General Internal Medicine 10/13/24 documented as of this encounter
--- OUTSIDE RECORDS SUMMARY | 2025-01-22 11:41 | XMS_ITS | Encounter Summary ---
Author Organization [employer] Address [address] [facility] 7t [place] [address] Care Team Providers Care Assistant Track And Field Coach Name Role Phone Hunter Kimbrough MD Primary Care Prov ider Encounter Details Date Type Department Care Team (Latest Contact Info) Description 01/19/2025 Travel Social History Tobacco Use Types Packs/Day [...] Description 01/26/2025 9:45 AM EST Office Visit [facility] MEDICINE [address] [place] [phone] Toi Shook MD [address] [place] [address] 02/02/2025 10:30 AM EST Clinical Support [address] [address] Paris Crabtree RN 02/02/2025 2:30 PM EST Office Visit [facility] CHC MED & PEDS [address] [place] [address] Hunter Kimbrough MD [address] [place] [address] documented as of this encounter Visit Diagnoses Not on filedocumented in this encounter Additional Health Concerns Assessment Noted Time PHQ-9 Depression Total Score: 0 12/01/19 9:06 AM EDT documented as of this encounter Care Teams Assistant Track And Field Coach Relationship Specialty Start Date End Date Hunter Kimbrough MD [address] [place] [address] PCP - General Internal Medicine 10/13/24 documented as of this encounter
--- OUTSIDE RECORDS SUMMARY | 2025-01-22 11:41 | XMS_ITS | Patient Health Record ---
Author Organization [facility] Address [address] [place] [address] Care Team Providers Care Metal Bed Assembler Name Role Phone NO, PCP Primary Care Provider [phone] Faby Zuniga Unavailable [phone] [facility], Nursing Unavailable [phone] Vicky Pool Unavailable [phone] Results Component Value Reference Range Notes Drug Toxicology Reviewed date:07/29/2024 12:07:25 PM Interpretation:Positive THC Performing Lab: Notes/Report: Positive THC Reason For Referral Reason Needs a [place] ID, he is looking for work Wrong number Referral Organization [facility] Referring Provider First Name Faby Referring Provider Last Name [facility] Referral Priority Routine Reason Needs a [place] ID, looki ng for work александр Person who answered said it was a wrong number Referral Organization [employer] [facility] Referring Provider First Name Faby Referring Provider Last Name [facility] Referral Priority Routine Social History Sex Assigned At : Social History Observation Description Sex Assigned At Male Encounters Encounter Location Date Provider Diagnosis [facility] [employer] [address] [place] [address] [id number] 07/27/2024 Vicky Pool [facility] [address] [place] [address] 07/28/2024 Vicky Pool [facility] [employer] [address] [place] [address] [id number] 07/29/2024 Vicky Pool [facility] [employer] [address] [place] [address] [id number] 08/06/2024 Faby Zuniga [facility] [employer] [address] [place] [address] [id number] 08/13/2024 Faby Zuniga [facility] [employer] [address] [place] [address] [id number] 08/20/2024 Faby Zuniga [facility] [employer] [address] [place] [address] [id number] 08/25/2024 Faby Zuniga [facility] [employer] [address] [place] [address] [id number] 07/24/2024 Faby Zuniga [facility] [employer] [address] [place] [address] [id number] 07/24/2024 Vicky Pool [facility] [address] [place] [address] 07/29/2024 Nursing [facility] Encounter for screening, unspecified Z13.9 Assessments Encounter [...] Insured Coverage Start Date Coverage End Date [place] Standard [address] [place] [phone] [id number] Yossi Kebede Self - patient is the insured
--- OUTSIDE RECORDS SUMMARY | 2025-01-22 11:41 | XMS_ITS | Clinical Summary ---
Author Organization [employer] Address [address] [place] [address] 7[address] [place] [address] Care Team Providers Care Certified Caregiver Name Role Phone Hunter Kimbrough MD Primary [...] DAY 60 tablet 3 12/15/19 25 Active nicotine (Nicoderm CQ) 14 MG/24HR patch Place 1 patch on the skin 1 (one) time each day at the same time. 42 patch 12/30/19 25 025 Active nicotine polacrilex (Nicotine Mini) 2 MG lozenge 1 or 2 lozenges every 1-2 hours instead of a cigarette. 108 lozenge 1 12/30/19 25 Active cholecalcifero l (Vitamin D-3) 25 MCG (1000 UT) capsule 2 tablets PO q am 60 capsule 1 01/06/20 25 Active nicotine (Nicoderm CQ) 21 MG/24HR patchIndicatio ns:Tobacco use disorder Place 1 patch on the skin 1 (one) time each day at the same time for 42 doses. 42 patch 10/28/20 25 12/09/2 025 Active Buprenorphine HCl-Naloxone HCl (Suboxone) 8-2 MG SL filmIndication s:Uncomplicate d opioid dependence (CMS/HCC) (HCC) Place 1 Film under the tongue Once per day for 7 days. 7 Film 01/16/20 Active buprenorphine- naloxone (Suboxone) 4-1 MG per sublingual filmIndication s:Uncomplicate d opioid dependence (CMS/HCC) (HCC) Place 1 Film under the tongue Once per day for 7 days. 7 Film 01/16/20 Active acetaminophen (Tylenol 8 Hour) 650 MG ER tabletIndicati ons:Polyarthra lgia Take 1 tablet (650 mg) by mouth every 8 (eight) hours if needed for mild pain. Do not crush, chew, or split. 30 tablet 2 11/24/19 Buprenorphine HCl-Naloxone HCl (Suboxone) 8-2 MG SL filmIndication s:Uncomplicate d opioid dependence (CMS/HCC) (HCC) Place 1 Film under the tongue Once per day for 7 days. 7 Film 12/23/19 025 Discontinued(Re order (will not trigger notification to Pharmacy)) buprenorphine- naloxone (Suboxone) 4-1 MG per sublingual filmIndication s:Uncomplicate d opioid dependence (CMS/HCC) (HCC) Place 1 Film under the tongue Once per day for 7 days. 7 Film 12/23/19 025 Discontinued(Re order (will not trigger notification to Pharmacy)) Buprenorphine HCl-Naloxone HCl (Suboxone) 8-2 MG SL filmIndication s:Uncomplicate d opioid dependence (CMS/HCC) (HCC) Place 1 Film under the tongue Once per day for 7 days. 7 Film 12/31/19 25 025 Discontinued(Re order (will not trigger notification to Pharmacy)) buprenorphine- naloxone (Suboxone) 4-1 MG per sublingual filmIndication s:Uncomplicate d opioid dependence (CMS/HCC) (HCC) Place 1 Film under the tongue Once per day for 7 days. 7 Film 12/31/19 25 025 Discontinued(Re order (will not trigger notification to Pharmacy)) Buprenorphine HCl-Naloxone HCl (Suboxone) 8-2 MG SL filmIndication s:Uncomplicate d opioid dependence (CMS/HCC) (HCC) Place 1 Film under the tongue Once per day for 7 days. 7 Film 01/12/20 025 Discontinued(Re order (will not trigger notification to Pharmacy)) buprenorphine- naloxone (Suboxone) 4-1 MG per sublingual filmIndication s:Uncomplicate d opioid dependence ([facility]/HCC) ([facility]) Place 1 Film under the tongue Once per day for 7 days. 7 Film 01/12/20 025 Discontinued(Re order (will not trigger notification [...] organization. Date Type Department Care Team Description 01/19/2025 9:30 AM EST Clinical Support [facility] [address] [place] [phone] Paris Crabtree RN Uncomplicated opioid dependence (CMS/HCC) ([facility]) 01/19/2025 Travel 01/18/2025 Refill [facility] [address] [place] [phone] Paris Crabtree RN Uncomplicated opioid dependence (CMS/HCC) ([facility]) 01/14/2025 Refill [facility] [address] [place] [address] [phone] Paris Crabtree RN Uncomplicated opioid dependence (CMS/HCC) (HCC) 01/12/2025 9:45 AM EDT Office Visit [address] [address] Toi Shook MD Uncomplicated opioid dependence (CMS/HCC) ([facility]) (Primary Dx); Tobacco use disorder 01/12/2025 Patient Outreach [address] [address] Ngoc Jones Recovery Supports 01/12/2025 Travel 01/08/2025 Refill [facility] [address] [place] [address] [phone] Paris Crabtree RN Uncomplicated opioid dependence (CMS/HCC) (HCC) 01/05/2025 10:45 AM EDT Office Visit [facility] [address] [place] [address] [phone] Toi Shook MD Uncomplicated opioid dependence (CMS/HCC) (HCC) (Primary Dx); Tobacco use disorder 01/05/2025 Travel 12/30/2024 Refill [facility] [address] [place] [address] [phone] Paris Crabtree RN Uncomplicated opioid dependence (CMS/HCC) (HCC) 12/29/2024 9:45 AM EDT Office Visit [facility] [address] [place] [address] [phone] Toi Shook MD Uncomplicated opioid dependence (CMS/HCC) (HCC) (Primary Dx); Opioid type dependence, continuous (CMS/HCC) (HCC); Tobacco use disorder; Anxiety 12/29/2024 Orders Only [facility] [address] [place] [phone] oTi Shook MD 12/29/2024 Travel 12/22/2024 10:00 AM EDT Clinical Support [facility] [address] [place] [address] [phone] Paris Crabtree RN Opioid type dependence, continuous (CMS/HCC) (HCC) (Primary Dx) 12/22/2024 Patient Outreach [facility] [address] [place] [address] [phone] Marin Rodriguez Recovery Supports 12/22/2024 Refill [facility] [address] [place] [address] [phone] Paris Crabtree RN Uncomplicated opioid dependence (CMS/HCC) (HCC) 12/22/2024 Travel 12/16/2024 Refill [facility] [address] [place] [address] [phone] Paris Crabtree RN Uncomplicated opioid dependence (CMS/HCC) (HCC) 12/15/2024 10:00 AM EDT Office Visit [facility] [address] [place] [address] [phone] Diana Whitlock MD Vascular insufficiency (Primary Dx); Right hand pain; Substance use disorder 12/15/2024 9:30 AM EDT Office Visit [facility] [address] [place] [address] [phone] Toi Shook MD Uncomplicated opioid dependence (CMS/HCC) (Primary Dx); Tobacco use disorder 12/15/2024 Patient Outreach [facility] [address] [place] [address] [phone] Marin Rodriguez Recovery Supports 12/15/2024 Patient Outreach [address] [phone] Melchor Burr Recovery Supports 12/15/2024 Travel 12/14/2024 Refill [facility] [address] [place] [address] [phone] Paris Crabtree RN Uncomplicated opioid dependence (CMS/HCC) 12/11/2024 Refill [facility] [address] [place] [address] Hunter Kimbrough MD 12/09/2024 Refill [facility] [address] [place] [address] Hunter Kimbrough MD 12/08/2024 Refill [facility] [address] [place] [address] [phone] Paris Crabtree RN 12/01/2024 11:15 AM EDT Office Visit [address] [address] Toi Shook MD Opioid type dependence, continuous (CMS/HCC) (Primary Dx); Uncomplicated opioid dependence (CMS/HCC); Tobacco use disorder; Other depression 12/01/2024 9:30 AM EDT Office Visit [facility] [address] [place] [phone] Chante Restrepo RN Uncomplicated opioid dependence (CMS/HCC) 12/01/2024 Patient Outreach [address] [phone] Marin Rodriguez Recovery Supports 12/01/2024 Refill [facility] [address] [place] [phone] Paris Crabtree RN Uncomplicated opioid use (Primary Dx) 12/01/2024 Travel 11/30/2024 9:00 AM EDT Telemedicine [facility] [address] [place] [address] Hunter Kimbrough MD Acquired trigger finger (Primary Dx); Polyarthralgia; Left leg swelling 11/30/2024 Travel 11/27/2024 Telephone [facility] [address] [place] [address] Hunter Kimbrough MD 11/27/2024 Telephone [facility] [address] [place] [address] Hunter Kimbrough MD Chart Prep 11/23/2024 1:20 PM EDT Office Visit [facility] [address] [place] [phone] Myrna Hall MD Polyarthralgia; Acquired trigger finger; Neuropathy of left foot 11/23/2024 Travel 11/18/2024 Population Health [facility] () Department [address] [place] [phone] Provider, Population Health Generic 11/13/2024 Refill [facility] [address] [place] [phone] Myrna Hall MD Neuropathy of left foot 10/23/2024 10:40 AM EDT Office Visit [facility] [address] [place] [phone] Myrna Hall MD Onychomycosis (Primary Dx); Neuropathy of left foot; Vascular insufficiency; Tinea pedis of both feet; Elevated blood pressure reading 10/23/2024 Travel from Last 3 Months Family History [...] Description 01/26/2025 9:45 AM EST Office Visit [facility] [address] [place] [phone] Toi Shook MD [address] [place] [address] 02/02/2025 10:30 AM EST Clinical Support [facility] [address] [place] [address] [phone] Paris Crabtree RN 02/02/2025 2:30 PM EST Office Visit [facility] [address], [place] [phone] Hunter Kimbrough MD [address] [place], [place] [phone] Health Maintenance Due Date Last Done Comments CT Colonography 1970 Colonoscopy 1970 Colorectal Cancer Screening 1970 FIT DNA/Cologuard 1970 FIT 1970 FOBT 1970 Sigmoidoscopy 1970 DTaP/Tdap/Td Vaccines (1 - Tdap) 1989 Hepatitis [...] Screening 11/30/2025 11/30/2024 Tobacco Screening 12/15/2025 12/15/2024 Lipid Panel 12/29/2029 12/29/2024 RSV Patients and Patients Aged 60 years or older (1 - 1-dose 75+ series) 2045 HIV Screening Completed 12/29/2024 Hepatitis C Screening Completed 12/29/2024 , 12/29/2024 HIB Vaccines Aged Out No longer eligi [...] Procedure Name Priority Date/Time Associated Diagnosis Comments LDCT LUNG SCREENING Routine 01/22/2025 1 0:31 AM EST POCT AARON-14 URINE DRUG SCREEN Routine 01/05/2025 9:40 AM EDT Uncomplicated opioid dependence (CMS/HCC) (HCC) POCT AARON-14 URINE DRUG SCREEN Routine 12/29/2024 10:50 AM EDT Opioid type dependence, continuous (CMS/HCC) (HCC) HEPATITIS C VIRAL RNA, QUANTITATIVE, REAL-TIME PCR Routine 12/29/2024 10:28 AM EDT T-SPOT(R).TB Routine 12/29/2024 10:28 AM EDT Uncomplicated opioid dependence (CMS/HCC) (HCC) RPR (MONITOR) W/REFL TITER Routine 12/29/2024 10:28 AM EDT Uncomplicated opioid dependence (CMS/HCC) (HCC) HEPATITIS A ANTIBODY, TOTAL Routine 12/29/2024 10:28 AM EDT Uncomplicated opioid dependence (CMS/HCC) (HCC) HEPATITIS B CORE AB TOTAL Routine 12/29/2024 10:28 AM EDT Uncomplicated opioid dependence (CMS/HCC) (HCC) HEPATITIS B SURFACE ANTIGEN, EIA Routine 12/29/2024 10:28 AM EDT Uncomplicated opioid dependence (CMS/HCC) (HCC) HEPATITIS B SURFACE ANTIBODY, QUALITATIVE Routine 12/29/2024 10:28 AM EDT Uncomplicated opioid dependence (CMS/HCC) (HCC) AYDEN SCREEN, IFA, W/REFL TITER AND PATTERN Routine 12/29/2024 10:28 AM EDT Polyarthralgia SED RATE BY MODIFIED WESTERGREN Routine 12/29/2024 10:28 AM EDT Polyarthralgia CYCLIC CITRULLINATED PEPTIDE (CCP) AB (IGG) Routine 12/29/2024 10:28 AM EDT Polyarthralgia C-REACTIVE PROTEIN Routine 12/29/2024 10 :28 AM EDT Polyarthralgia VITAMIN B12/FOLATE, SERUM PANEL Routine 12/29/2024 10:28 AM EDT Neuropathy of left foot TSH W/REFLEX TO FT4 Routine 12/29/2024 1 0:28 AM EDT Neuropathy of left foot VITAMIN D,25-OH,TOTAL,IA Routine 12/29/2024 10:28 AM EDT Neuropathy of left foot LIPID PANEL, STANDARD Routine 12/29/2024 10:28 AM EDT Neuropathy of left foot HEPATITIS C AB W/REFL TO HCV RNA, QN, PCR Routine 12/29/2024 10:28 AM EDT Neuropathy of left foot HIV 1/2 ANTIGEN/ANTIBODY, FOURTH GENERATION W/RFL Routine 12/29/2024 10:28 AM EDT Neuropathy of left foot HEMOGLOBIN A1C Routine 12/29/2024 10:28 AM EDT Neuropathy of left foot COMPREHENSIVE METABOLIC PANEL Routine 12/29/2024 10:28 AM EDT Neuropathy of left foot CBC WITH AUTO DIFFERENTIAL Routine 12/29/2024 10:28 AM EDT Neuropathy of left foot POCT AARON-14 URINE DRUG SCREEN Routine 12/22/2024 9:51 AM EDT Opioid type dependence, continuous (CMS/HCC) (HCC) POCT AARON-14 URINE DRUG SCREEN Routine 12/15/2024 9:30 AM EDT Uncomplicated opioid dependence (CMS/HCC) POCT AARON-14 URINE DRUG SCREEN Routine 12/01/2024 10:28 AM EDT Opioid type dependence, continuous (CMS/HCC) from Last 3 Months Results * CT Lung Screening Low dose (01/22/2025 10:31 AM EST) Anatomical Region Laterality Modality Lung Computed Tomogra phy 01/22/2025 10:3 1 AM EST Narrative 01/22/2025 10:55 AM EST [place] [address] CT Scan Report Signed Patient: Yossi Kebede MR#: [id number] : 1970 Acct:[id number] Age/Sex: 54 / M ADM Date: 01/22/25 Loc: HO.CT Attending Dr: Gracie Rebolledo PA-C Ordering Physician: Gracie Rebolledo PA-C Date of Service: 01/22/25 Procedure(s): CT lung screening Accession Number(s): [id number] cc: Debra Avila DATA ANALYSIS ASSISTANT; Gracie Rebolledo PA-C Report Number: [id number]: Total DLP = 66.00 mGy-cm Reason for Exam: F17.210 - Nicotine dependence, cigarettes, uncomplicated EXAMINATION: CT LUNG SCREENING HISTORY: F17.210 - Nicotine dependence, cigarettes, uncomplicated TECHNIQUE: Low dose axial images were obtained from the sternal notch to upper abdomen without IV contrast per standard departmental protocol. Sagittal and coronal reformatted images were also obtained and reviewed. One or more of the following techniques was used for dose reduction: Automated exposure control, adjustment of the mA and/or kV according to patient size, use of iterative reconstruction technique. DLP: 66 mGy-cm COMPARISON: There are no prior studies available for comparison. FINDINGS: Lung nodules: There are calcified granulomas in the right upper lobe (series 4, image 36), and in the right lower lobe (series 4, image 92). No suspicious pulmonary nodules are identified. Emphysema: mild Coronary Calcification: none Aortic Arch Calcification: mild Potentially Significant Incidentals : none Additional Chest Findings: There is no pleural or pericardial effusion. No mediastinal or axillary lymphadenopathy is identified. Visualized upper abdomen: The visualized portions of the liver, spleen, and adrenals have an unremarkable unenhanced appearance. The patient is status post cholecystectomy. The left kidney is not visualized and may be surgically absent. CT/CT lung screening IMPRESSION: No suspicious pulmonary nodules are identified. LUNG-RADS ASSESSMENT: Lung-RADS 2: Benign MANAGEMENT: Continue annual screening with LDCT in 12 months Category S: N/A Electronically signed by: Alfredo Montemayor MD 01/22/2025 10:53 AM [facility] Dictated By: Alfredo Montemayor MD Signed By: <Electronically signed by Alfredo Montemayor MD in OV> 01/22/25 1053 DD/ 1031 TD/TT: 01/22/25 1040 Asl Interpreter: Procedure Note Donotuseinterpreter, Image - 01/22/[address] [address] [address] Scan Report Signed Patient: Radha Kebede#: [id number] : 1970Acct:[id number] Age/Sex: 54 / MADM Date: 01/22/25 Loc: HO.CT Attending Dr: Gracie Rebolledo PA-C Ordering Physician: Gracie Rebolledo PA-C Date of Service: 01/22/25 Procedure(s): CT lung screening Accession Number(s): [id number] cc: Debra Avila DATA ANALYSIS ASSISTANT; Gracie Rebolledo PA-C Report Number: [id number]: Total DLP = 66.00 mGy-cm Reason for Exam: F17.210 - Nicotine dependence, cigarettes, uncomplicated EXAMINATION: CT LUNG SCREENING HISTORY: F17.210 - Nicotine dependence, cigarettes, uncomplicated TECHNIQUE: Low dose axial images were obtained from the sternal notch to upper abdomen without IV contrast per standard departmental protocol. Sagittal and coronal reformatted images were also obtained and reviewed. One or more of the following techniques was used for dose reduction: Automated exposure control, adjustment of the mA and/or kV according to patient size, use of iterative reconstruction technique. DLP: 66 mGy-cm COMPARISON: There are no prior studies available for comparison. FINDINGS: Lung nodules: There are calcified granulomas in the right upper lobe (series 4, image 36), and in the right lower lobe (series 4, image 92). No suspicious pulmonary nodules are identified. Emphysema: mild Coronary Calcification: none Aortic Arch Calcification: mild Potentially Significant Incidentals : none Additional Chest Findings: There is no pleural or pericardial effusion. No mediastinal or axillary lymphadenopathy is identified. Visualized upper abdomen: The visualized portions of the liver, spleen, and adrenals have an unremarkable unenhanced appearance. The patient is status post cholecystectomy. The left kidney is not visualized and may be surgically absent. CT/CT lung screening IMPRESSION: No suspicious pulmonary nodules are identified. LUNG-RADS ASSESSMENT: Lung-RADS 2: Benign MANAGEMENT: Continue annual screening with LDCT in 12 months Category S: N/A Electronically signed by: Alfredo Montemayor MD 01/22/2025 10:53 AM EST Dictated By: Alfredo Montemayor MD Signed By: <Electronically signed by Alfredo Montemayor MD in OV> 01/22/25 1053 DD/ 1031 TD/TT: 01/22/25 1040 Asl Interpreter: [facility] External Provider IMG CT PROCEDURES Final Result * (ABNORMAL) POCT AARON-14 Urine Drug Screen (01/05/2025 9:40 AM EDT) Only the most recent of5 resultswithin the time period is included. THC [...] obtained by clean catch procedure / Unknown 01/05/2025 9:40 AM EDT Toi Shook MD POINT OF CARE TEST ENTER/EDIT ORDERABLES Final Result * (ABNORMAL) Vitamin D, 25-Hydroxy, Total, Immunoassay (12/29/2024 10:28 AM EDT) Vitamin D 25-OH Total 26.9(L) >30 ng/mL [facility] Comment: Health Based Reference Values*< 20 ng/mL Qvlxucqms35-63 ng/mL Insufficient> 30 ng/mL Sufficient*Dilia MILLS. N Engl J Med. 2007;357:266-280There is no well-established upper level of normal vitamin Dlevels. Some laboratories use 50 ng/mL as an upper limit ofnormal. However, toxicity is patient-dependent and may occurat any level. Careful correlation with the patient'spresentation is necessary and, if there is concern forvitamin D toxicity, treatment should be consideredirrespective of the serum level.Care must be taken in interpreting Vitamin D results fromdifferent laboratories and methodologies. Published datademonstrated that results from patients undergoinghemodialysis may show a negative bias when tested withvarious automated 25-OH vitamin D assays when compared toLC-MS/MS.When testing samples from patients whose predominant form ofVitamin D is Vitamin D2, such as patients receiving VitaminD2 supplementation, results that are subtherapeutic shouldbe confirmed with another method such as LC-MS/MS. Blood Venous blood specimen / Unknown 12/29/2024 10:28 AM EDT 12/29/2024 11:43 AM EDT Myrna Herrera MD LAB BLOOD ORDERABLES Final Result Performing Organization Address [facility] Co de Phone Number [facility] [address] [place] [phone] * Vitamin B12/Folate, Serum Panel (12/29/2024 10:28 AM EDT) [facility] Vitamin B12 440 200 - 900 pg/mL [facility] Comment:NORMAL 200-900 PG/ML INDETERMINATE 160-199 PG/ML DEFICIENT < 160 PG/ML Folate 12.4 > or = 4.0 ng/mL [facility] Comment:Reference Values:> o r = 4.0 ng/mL< 4.0 ng/mL suggests folate deficiency Methotrexate, aminopterin and folinic acid(leucovorin) are chemotherapeutic agents whose molecularstructures are similar to folate; therefore, the Architectfolate assay cannot be used for patients using these drugs. Blood Venous blood specimen / Unknown 12/29/2024 10:28 AM EDT 12/29/2024 11:43 AM EDT us Myrna Herrera MD LAB BLOOD ORDERABLES Final Result Performing Organization Address [facility] Co de Phone Number [facility] [address] [place] [phone] * T-SPOT??.TB (12/29/2024 10:28 AM EDT) [facility] T Spot TB Negative Negative [facility] Comment:A negative test resu lt does not exclude the possibilityof exposure to or infection with Mycobacteriumtuberculosis (M. tuberculosis). Patients with recentexposure to TB infected individuals exhibiting anegative T-SPOT.TB result should be considered forretesting within 6 weeks or if other relevant clinicalsymptoms indicate. Results from T-SPOT.TB testing mustbe used in conjunction with each individual'sepidemiological history, current medical status,and results of other diagnostic evaluations.The T-SPOT.TB test is qualitative and results arereported as positive, borderline, or negative, giventhat the test controls perform as expected. In linewith the Centers for Disease Control and Prevention's2010 recommendation to report quantitative measurementsalongside the qualitative result, the laboratoryprovides spot counts for informational purposes only.The T-SPOT.TB test should not be interpreted as aquantitative test. TS PANEL A 0 [facility] TS PANEL B 0 [facility] Negative Control Passed [facility] Positive Control Passed [facility] Comment:For additional infor matsunday, please refer tohttp://education.[employer]/faq/NKR673(This link is being provided for informational/educational purposes only.)THIS TEST WAS PERFORMED AT:[employer] [id number] [place] [address]IECJQXKROXANNE GOLD MD,PHD 12/29/2024 10:2 8 AM EDT 12/29/2024 11:43 AM EDT us Toi Shook MD LAB BLOOD ORDERABLES Final Res ult [facility] [address] [place] [phone] * TSH with Reflex to Free T4 (12/29/2024 10:28 AM EDT) TSH reflex Free T4 1.40 0.32 - 4.0 uIU/mL [facility] Blood Venous blood specimen / Unknown 12/29/2024 10:28 AM EDT 12/29/2024 11:43 AM EDT us Myrna Herrera MD LAB BLOOD ORDERABLES Final Result Performing Organization Address City/[facility]/ZIP Co de Phone Number [facility] [address] [place] [phone] * Hepatitis C Viral RNA, Quantitative, Real-Time PCR (12/29/2024 10:28 AM EDT) [facility] Hepatitis C Viral Load <15 NOT DETECTED NOT DETECTED IU/mL [facility] HCV Log PCR <1.18 NOT DETECTED NOT DETECTED Log IU/mL [facility] Comment:For additional infor bhargavi, please refer tohttp://education.[employer]/faq/RMC76b0(This link is being provided for informational/educational purposes only.)THIS TEST WAS PERFORMED AT:[facility] [place] [id number] LUCAS MD 12/29/2024 10:2 8 AM EDT 12/30/2024 10:26 AM EDT us Toi Shook MD LAB BLOOD ORDERABLES Final Res ult Performing Organization Address [facility]/ZIP Co de Phone Number [facility] [address] [place] [address] [phone] * (ABNORMAL) CBC auto differential (12/29/2024 10:28 AM EDT) [facility] White Blood Count 5.7 4.8 - 10.8 X10*3/uL [facility] Red Blood Count 5.01 4.60 - 5.80 X10*6/uL [facility] Hemoglobin 14.7 14.0 - 18.0 g/dl [facility] Hematocrit 46.0 42.0 - 52.0 % [facility] Mean Corpuscular Volume 91.8 80.0 - 98.0 fL [facility] Mean Corpuscular Hemoglobin 29.3 27.0 - 33.0 pg [facility] Mean Corpuscular HGB Conc 32.0 31.0 - 36.0 g/dl [facility] Red Cell Distribution Width 13.7 11.0 - 16.0 % [facility] Platelet Count 344 160 - 400 X10*3/uL [facility] Mean Platelet Volume 8.9(L) 9.4 - 12.4 fL [facility] Neutrophils Percent Auto 55.8 45 - 73 % [facility] Imm Gran Pct Auto 0.7(H) 0.0 - 0.4 % [facility] Lymphocytes Percent Auto 28.6 20 - 40 % [facility] Monocytes Percent Auto 9.8 2 - 11 % [facility] Eosinophils Percent Auto 3.9 0 - 4 % [facility] Basophils Percent Auto 1.2 0 - 2 % [facility] NRBC Pct Auto 0.0 0.0 - 0.2 /100WBC [facility] Neutrophils Absolute Auto 3.2 2.0 - 8.3 x10*3/uL [facility] Imm Gran Abs Auto 0.04(H) 0.00 - 0.03 X10*3/uL [facility] Lymphocytes Absolute Auto 1.6 1.2 - 4.9 X10*3/uL [facility] Monocytes Absolute Auto 0.6 0.1 - 1.2 X10*3/uL [facility] Eosinophils Absolute Auto 0.2 0.0 - 0.4 X10*3/uL [facility] Basophils Absolute Auto 0.1 0.0 - 0.2 X10*3/uL [facility] NRBC Abs Auto 0.000 0.0 - 0.012 X10*3/uL [facility] Blood Venous blood specimen / Unknown 12/29/2024 10:28 AM EDT 12/29/2024 11:43 AM EDT us Myrna Herrera MD LAB BLOOD ORDERABLES Final Result [facility] [address], [place] [phone] * (ABNORMAL) Hepatitis C Antibody with Reflex to HCV, RNA, Quantitative, Real- Time PCR (12/29/2024 10:28 AM EDT) Hepatitis C Antibody Reactive( A) Nonreactive [facility] Comment:Presumptive evidence of antibodies to HCV. Blood Venous blood specimen / Unknown 12/29/2024 10:28 AM EDT 12/29/2024 11:43 AM EDT Myrna Herrera MD LAB BLOOD ORDERABLES Final Result Performing Organization Address [facility] [[email or web address]] de Phone Number [facility] [address] [place] [phone] * Cyclic Citrullinated Peptide (CCP) Antibody (IgG) (12/29/2024 10:28 AM EDT) Cyclic Citrullinated Peptide <16 UNITS [facility] Comment:Reference RangeNegat carter: <20Weak Positive: 20-39Moderate Positive: 40-59Strong Positive: >59THIS TEST WAS PERFORMED AT:[facility] [address] [id number] LUCAS MD Blood Venous blood specimen / Unknown 12/29/2024 10:28 AM EDT 12/29/2024 11:43 AM EDT Myrna Herrera MD LAB BLOOD ORDERABLES Final Result Performing Organization Address [facility] Co de Phone Number [facility] [address] [place] [phone] * Hepatitis A Antibody, Total (12/29/2024 10:28 AM EDT) Hepatitis A Antibody IgG REACTIVE Nonreactive [facility] Comment:The presence of IgG anti-HAV implies past HAV infection(recent or distant) or vaccination against HAV. Blood Venous blood specimen / Unknown 12/29/2024 10:28 AM EDT 12/29/2024 11:43 AM EDT us Toi Shook MD LAB BLOOD ORDERABLES Final Res ult Performing Organization Address [facility]/ZIP Co de Phone Number [facility] [address] [place] [phone] * Hepatitis B surface antigen, EIA (12/29/2024 10:28 AM EDT) Hepatitis B Surface Ag Negative Negative [facility] Blood Venous blood specimen / Unknown 12/29/2024 10:28 AM EDT 12/29/2024 11:43 AM EDT us Toi Shook MD LAB BLOOD ORDERABLES Final Res ult Performing Organization Address [facility] Co de Phone Number [facility] [address] [place] [phone] * Hepatitis B Core Antibody, Total (12/29/2024 10:28 AM EDT) Hepatitis B Core Antibody Reactive Nonreactive [facility] Comment:Presumptive evidence of anti-HBc. Blood Venous blood specimen / Unknown 12/29/2024 10:28 AM EDT 12/29/2024 11:43 AM EDT us Toi Shook MD LAB BLOOD ORDERABLES Final Res ult Performing Organization Address [facility] Co de Phone Number [facility] [address] [place] [phone] * RPR (Monitor) with Reflex to??Titer (12/29/2024 10:28 AM EDT) RPR (Monitor) w/Refl Titer NON-REACTI VE NON-REACT CARTER [facility] Comment:THIS TEST WAS PERFOR MED AT:[facility] [place] [phone] LUCAS MD Rapid Plasma Reagin Ab Titer TNP [facility] Blood Venous blood specimen / Unknown 12/29/2024 10:28 AM EDT 12/29/2024 11:43 AM EDT us Toi Shook MD LAB BLOOD ORDERABLES Final Res ult Performing Organization Address [facility]/ZIP Co de Phone Number [facility] [address] [place] [phone] * HIV-1/2 Antigen and Antibodies, Fourth Generation, with Reflexes (12/29/2024 10:28 AM EDT) HIV AB/AG Nonreactive Nonreactive [facility] Comment:HIV-1 p24 Ag and/or HIV-1/HIV-2 Ab not detected.A test result that is nonreactive does not exclude thepossibility of exposure to or infection with HIV-1 and/orHIV-2. Nonreactive results in this assay for individualswith prior exposure to HIV-1 and/or HIV-2 may be due toantigen and antibody levels that are below the limit ofdetection of this assay.The twtMobniSwypeShield HIV Ag/Ab Combo assay result andsupplemental assay results should be interpreted inconjunction with the patient's clinical presentation,history and other laboratory results. If the results areinconsistent with clinical evidence, additional testing issuggested to confirm the result. Blood Venous blood specimen / Unknown 12/29/2024 10:28 AM EDT 12/29/2024 11:43 AM EDT us Myrna Herrera MD LAB BLOOD ORDERABLES Final Result Performing Organization Address City/[facility]/ZIP Co de Phone Number [facility] [address] [place] [phone] * Hepatitis B Surface Antibody, Qualitative (12/29/2024 10:28 AM EDT) ~Hepatitis B Surface Antibody REACTIVE Nonreactive [facility] Comment:REACTIVE: > 11.99 mI U/mL Blood Venous blood specimen / Unknown 12/29/2024 10:28 AM EDT 12/29/2024 11:43 AM EDT us Toi Shook MD LAB BLOOD ORDERABLES Final Res ult Performing Organization Address [facility] Co de Phone Number [facility] [address] [place] [phone] * Sed Rate by Modified Westergren (12/29/2024 10:28 AM EDT) Erythrocyte Sedimentation Rate 11 0 - 15 MM/HR [facility] Comment:Patients with polycy themia and many hemoglobin abnormalitiesmay have depressed sed rates whereas patients with anemiamay have elevated sed rates. Blood Venous blood specimen / Unknown 12/29/2024 10:28 AM EDT 12/29/2024 11:43 AM EDT us Myrna Herrera MD LAB BLOOD ORDERABLES Final Result Performing Organization Address [facility] Co de Phone Number [facility] [address] [place] [phone] * C-reactive Protein (12/29/2024 10:28 AM EDT) [facility] C Reactive Protein 0.50 < or = 0.50 mg/dL [facility] Blood Venous blood specimen / Unknown 12/29/2024 10:28 AM EDT 12/29/2024 11:43 AM EDT us Myrna Herrera MD LAB BLOOD ORDERABLES Final Result Performing Organization Address [facility] Co de Phone Number [facility] [address] [place] [phone] * AYDEN Screen,IFA, with Reflex to Titer and Pattern (12/29/2024 10:28 AM EDT) Pathologist [facility] Anti Nuclear Antibody Screen NEGATIVE NEGATIVE [facility] Comment:AYDEN IFA is a first l ine screen for detecting thepresence of up to approximately 150 autoantibodies invarious autoimmune diseases. A negative AYDEN IFA resultsuggests an AYDEN-associated autoimmune disease is notpresent at this time, but is not definitive. If thereis high clinical suspicion for Sjogren's syndrome,testing for anti-SS-A/Ro antibody should be considered.Anti-Mary-1 antibody should be considered for clinicallysuspected inflammatory myopathies.AC-0: NegativeInternational Consensus on AYDEN Patterns(https://doi.org/10.1515/jflk-5006-9091)For additional information, please refer tohttp://education.Infobright/faq/QTX849(This link is being provided for informational/educational purposes only.)THIS TEST WAS PERFORMED AT:[facility] [place] [phone] LUCAS MD AYDEN Titer TNP [facility] AYDEN Pattern TNP [facility] AYDEN Titer 2 [facility] AYDEN Pattern 2 TNP [facility] AYDEN TITER 3 [facility] AYDEN PATTERN 3 TNP [facility] Blood Venous blood specimen / Unknown 12/29/2024 10:28 AM EDT 12/29/2024 11:43 AM EDT us Myrna Herrera MD LAB BLOOD ORDERABLES Final Result [facility] [address] [place] [phone] * Hemoglobin A1c (12/29/2024 10:28 AM EDT) Hemoglobin A1c 5.3 <6.0 % [facility] Comment:Hemoglobin A1C Refer ence Range Adults: 4.8 - 6.0 % Non diabetic: < 6.0 % Goal: < 7.0 %Additional Action Suggested: > 8.0 %Note: Hemoglobin A1c results are invalid for patients with abnormal amounts of HbF. Blood transfusions may impact the HbA1c concentration in the patient sample. Estimated Average Glucose 105 mg/dL [facility] Comment:eAG = Estimated ave rage glucose which is %A1C expressed asaverage glucose, using the formula of the M4P-ChjbpqrPzvitch Glucose study (ADAG), Diabetes Care, Vol.31,#8,Oct. 2007 Blood Venous blood specimen / Unknown 12/29/2024 10:28 AM EDT 12/29/2024 11:43 AM EDT us Myrna Herrera MD LAB BLOOD ORDERABLES Final Result Performing Organization Address [facility] Co de Phone Number [facility] [address] [place] [phone] * (ABNORMAL) Lipid Panel, Standard (12/29/2024 10:28 AM EDT) Triglycerides 113 <150 mg/dL [facility] Comment:Desirable Triglyceri de: less than 150 mg/dLBorderline High Triglyceride 150-199 mg/dLHigh Triglyceride: 200-499 mg/dLVery High Triglyceride: greater than or equal to 5OO mg/dL Cholesterol 154 <200 mg/dL [facility] Comment:Desirable Cholestero l: less than 200 mg/dLBorderline High Cholesterol: 200-239 mg/dLHigh Cholesterol: greater than 239 mg/dL LDL Cholesterol Calculated 96 <100 mg/dL [facility] Comment:Desirable LDL: less than 100 mg/dLNear Optimal/Above Optimal LDL: 110- 129 mg/dLBorderline High LDL: 130-159 mg/dLHigh LDL: 160-189 mg/dLVery High LDL: greater than or equal to 190 mg/dL HDL Cholesterol 36(L) >40 mg/dL [facility] Comment:Desirable HDL: great er than 40 mg/dL Note: This HDL assay may give artificially low results in patients with liver disease. Blood Venous blood specimen / Unknown 12/29/2024 10:28 AM EDT 12/29/2024 11:43 AM EDT us Myrna Herrera MD LAB BLOOD ORDERABLES Final Result Performing Organization Address City/[facility]/ZIP Co de Phone Number [facility] [address] [place] [phone] * (ABNORMAL) Comprehensive Metabolic Panel (12/29/2024 10:28 AM EDT) Sodium 144 135 - 145 mmol/L [facility] Potassium 4.3 3.3 - 5.1 mmol/L [facility] Chloride 109(H) 96 - 108 mmol/L [facility] Carbon Dioxide 29 22 - 29 mmol/L [facility] Anion Gap 10(L) 12 - 20 [facility] Urea Nitrogen (BUN) 10 9 - 16 mg/dL [facility] Creatinine, Serum 0.75 0.5 - 1.4 mg/dL [facility] Estimated Glomerular Filt Rate >60 [facility] Comment:Chronic Kidney Disea se: Estimated GFR < 60 mL/min/1.71i7Mraiwm Kidney Disease: Estimated GFR < 15 mL/min/1.73m2 Glucose 108 60 - 115 mg/dL [facility] Calcium 9.5 8.4 - 10.2 mg/dL [facility] Bilirubin, Total 0.3 0.0 - 1.0 mg/dL [facility] Aspartate Amino Transferase 27 5 - 37 U/L [facility] Alanine Aminotransferase 23 0 - 40 U/L [facility] Total Protein 7.4 6.5 - 8.0 g/dL [facility] Albumin Level 4.4 3.5 - 5.0 g/dL [facility] Alkaline Phosphatase 85 39 - 117 U/L [facility] Blood Venous blood specimen / Unknown 12/29/2024 10:28 AM EDT 12/29/2024 11:43 AM EDT us Myrna Herrera MD LAB BLOOD ORDERABLES Final Result [facility] [address] [place] [phone] from Last [address] [place] [address] [place] [address] C3 Care Teams Certified Caregiver Relationship Specialty Start Date End Date ConnorHunter Sam MD [address] [place] [phone] PCP - General Internal Medicine 10/13/24
== END 2025-01-22 10:46 | disposition home or self-care (01) ==
LOC: HO.HPS 09:58
PROVIDERS: PCP Nurse Practitioner Family; Referring Provider Nurse Practitioner Family; Visit Provider Physician Assistant Medical
DX: F17.210 Nicotine dependence, cigarettes, uncomplicated (principal)
CPT/HCPCS: G0296

== ENCOUNTER 2025-01-22 10:20 | Outpatient (REF) | payer MEDICAID, SELFPAY ==
--- NOTE | ~2025-01-22 | CT_ITS ---
EXAMINATION: CT LUNG SCREENING HISTORY: F17.210 - Nicotine dependence, cigarettes, uncomplicated TECHNIQUE: Low dose axial images were obtained from the sternal notch to upper abdomen without IV contrast per standard departmental protocol. Sagittal and coronal reformatted images were also obtained and reviewed. One or more of the following techniques was used for dose reduction: Automated exposure control, adjustment of the mA and/or kV according to patient size, use of iterative reconstruction technique. DLP: 66 mGy-cm COMPARISON: There are no prior studies available for comparison. FINDINGS: Lung nodules: There are calcified granulomas in the right upper lobe (series 4, image 36), and in the right lower lobe (series 4, image 92). No suspicious pulmonary nodules are identified. Emphysema: mild Coronary Calcification: none Aortic Arch Calcification: mild Potentially Significant Incidentals : none Additional Chest Findings: There is no pleural or pericardial effusion. No mediastinal or axillary lymphadenopathy is identified. Visualized upper abdomen: The visualized portions of the liver, spleen, and adrenals have an unremarkable unenhanced appearance. The patient is status post cholecystectomy. The left kidney is not visualized and may be surgically absent. CT/CT lung screening IMPRESSION: No suspicious pulmonary nodules are identified. LUNG-RADS ASSESSMENT: Lung-RADS 2: Benign MANAGEMENT: Continue annual screening with LDCT in 12 months Category S: N/A Electronically signed by: Alfredo Montemayor MD 01/22/2025 10:53 AM [facility]
== END 2025-01-22 10:21 | disposition home or self-care (01) ==
LOC: HO.CT 10:20
PROVIDERS: PCP Nurse Practitioner Family; Visit Provider Physician Assistant Medical
DX: Z12.2 Encounter for screening for malignant neoplasm of respiratory organs (principal); F17.210 Nicotine dependence, cigarettes, uncomplicated
CPT/HCPCS: 71271; G0296

== ENCOUNTER → 2025-01-22 10:22 | Outpatient (BNV) | payer MEDICAID, SELFPAY | PROVIDERS: PCP Nurse Practitioner Family; Visit Provider Radiology Diagnostic Radiology | DX: F17.210 Nicotine dependence, cigarettes, uncomplicated (principal) | CPT/HCPCS: 71271 ==